=== PATIENT | male | born 1945 | race Caucasian/White ===

== ENCOUNTER 2019-10-30 18:51 | Emergency (ER) | payer MEDICAID ==
[~2019-10-30] VITALS: Ht 162.6 cm; Wt 74.8 kg
[2019-10-30 19:35] VITALS: BP_SYST 142
--- NOTE | 2019-10-30 21:38 | NUR ---
Patient to ER [facility] to [facility] for evaluation. Side rails up. Report given to DENIS Rodriguez.
--- NOTE | 2019-10-30 21:40 | NUR ---
Pt brought by self, A&OX4, pt presents to ER with L lower back pain radiating to leg after falling yesterday, skin pink and warm, cap refill <3, VSS, respirations even and unlabored.
--- NOTE | 2019-10-30 22:13 | NUR ---
ER Dr. Welsh at bedside examining patient.
[2019-10-30 22:30] VITALS: BP_SYST 139
--- NOTE | 2019-10-30 22:30 | NUR ---
Patient given written and verbal discharge instructions and verbalizes understanding. ER MD discussed with patient the results and treatment provided. Patient in stable condition. ID arm band removed. Rx of Ibuprofen and [place] given. Patient educated on pain management and to follow up with PMD. Pain Scale 0. Opportunity for questions provided and answered. Medication side effect fact sheet provided.
== END 2019-10-30 22:30 | disposition home or self-care (01) ==
LOC: SED 18:51
DX: S30.0XXA Contusion of lower back and pelvis, initial encounter (principal); E11.9 Type 2 diabetes mellitus without complications; W01.0XXA Fall on same level from slipping, tripping and stumbling without subsequent striking against object, initial encounter; Y93.89 Activity, other specified; Y92.89 Other specified places as the place of occurrence of the external cause; Y99.8 Other external cause status
CPT/HCPCS: 72170-TC; 99283